=== PATIENT | male | born 1985 | race Asian ===

== ENCOUNTER 2020-09-02 09:09 | Outpatient (CLI) | payer BC | END 2020-09-03 07:15 | disposition home or self-care (01) | LOC: SUS 09:09 | PROVIDERS: ATTEND Internal Medicine Cardiovascular Disease | DX: E04.1 Nontoxic single thyroid nodule (principal) | CPT/HCPCS: 76536-TC ==

== ENCOUNTER 2020-09-03 08:55 | Outpatient (CLI) | payer BC | END 2020-09-03 20:32 | disposition home or self-care (01) | LOC: SUS 08:55 | DX: E04.1 Nontoxic single thyroid nodule (principal) | CPT/HCPCS: 10022; 88172; 88173; 88305 ==